=== PATIENT | female | born 1950 | race Hispanic/Latino ===

== ENCOUNTER 2018-05-13 16:42 | Emergency (ER) | payer MEDICARE, SELFPAY ==
[2018-05-13 17:25] LABS: #Basophils 0.1 thou/uL (0.0-0.2); #Eosinphils 0.1 thou/uL (0.0-0.7); #Lymphocytes 1.9 thou/uL (1.20-3.40); #Monocytes 0.5 thou/uL (0.11-0.59); #Neutrophils 4.5 thou/uL (1.40-6.50); %Eosinophils 2.1 % (0.0-10.0); %Lymphocytes 26.9 % (21.0-51.0); %Monocytes 6.8 % (0.0-10.0); %Neutrophils 63.2 % (42.0-75.0); Mean Corpuscular HGB CONC 35.5 g/dL (32.0-36.0); Mean Corpuscular Hemoglobin 33.3 pg (27.0-31.0); Mean Corpuscular Volume 93.8 fL (78.0-98.0); Platelet Count 344 thou/uL (130-400); RBC Distribution Width 13.1 % (11.5-14.5); Red Blood Cell (RBC) Count 3.91 mill/uL (4.20-5.40); White Blood Cell (WBC) Count 7.2 thou/uL (4.8-10.8)
[2018-05-13 17:41] LABS: BHCG - Serum POSITIVE (NEGATIVE); Pregs Control Background? CLEAR/WHITE (CLR/WHITE); Pregs Control Bar Appear? YES (CONTROL BAR)
[2018-05-13 17:49] LABS: ALT (SGPT) 63 U/L (8-55); AST (SGOT) 75 U/L (5-34); Acetaminophen Less than 6.0 mcg/mL (10.0-30.0); Albumin 4.3 g/dL (3.4-4.8); Alcohol 47 mg/dL (Less than 10); Alkaline Phosphatase 103 U/L (40-150); Anion Gap 18 mmol/L (10-20); BUN (Urea Nitrogen) 6 mg/dL (9.8-20.1); Bilirubin, Total 0.3 mg/dL (0.2-1.2); Calc. Creatinine Clearance 0 mL/min (70-130); Calcium 9.7 mg/dL (7.8-10.44); Carbon Dioxide 20 mmol/L (23-31); Chloride 98 mmol/L (98-107); Estimated GFR-MDRD 68; Globulin 2.9 g/dL (2.4-3.5); Glucose 95 mg/dL (80-115); Potassium 3.9 mmol/L (3.5-5.1); Protein, Total 7.2 g/dL (6.0-8.3); Salicylate Less than 8.0 mg/dL (15.0-30.0); Sodium 132 mmol/L (136-145)
[2018-05-13 18:22] LABS: Bilirubin Negative (Negative); Blood, Urine Trace (Negative); Clarity TURBID (Clear); Glucose, Urine (Dipstick) Negative (Negative); Leukocyte Large (Negative); Nitrite Positive (Negative); Protein, Urine (Dipstick) 100 mg/dL (Neg-Trace); Specific Gravity, Urine 1.019 (1.002-1.036); Urobilinogen 0.2 mg/dL (0.2-1.0)
[2018-05-13 18:23] LABS: Amphetamine Not Detected (NotDetected); Barbiturates Screen Not Detected (NotDetected); Benzodiazepine Screen Not Detected (NotDetected); Cocaine Metabolite Screen Not Detected (NotDetected); Medtox Control Line Valid? VALID (VALID); Medtox Reader # READER 4; Methadone Not Detected (NotDetected); Methamphetamine Not Detected (NotDetected); Opiate Screen Not Detected (NotDetected); Oxycodone Screen Not Detected (NotDetected); Phencyclidine (PCP) Not Detected (NotDetected); THC/Cannabinoid Screen Detected (NotDetected); Tricyclic Screen Not Detected (NotDetected)
[2018-05-13 18:24] LABS: Bacteria/HPF 2+ HPF (None Seen); Hyaline Casts/LPF 4-6 HYALINE CAST LPF (0-3 Hyaline); Pathc Cast-AUWi Flag 1.74 (0-2.49); Yeast-AUWi Flag 23.1 (0-25.0)
[2018-05-13] MEDS ORDERED: Nitroglycerin 0.4mg/Hour PATCH ONE (19:41)
[2018-05-13] MEDS ORDERED: Acetaminophen 500 MG TAB ONE (19:51)
[2018-05-14] MEDS ORDERED: cloNIDine 0.1 MG TAB ONE (04:42)
[2018-05-14] MEDS ORDERED: Acetaminophen 500 MG TAB ONE (04:42)
== END 2018-05-14 04:59 ==
LOC: ERS 16:42
DX: R45.851 Suicidal ideations (principal); I25.10 Atherosclerotic heart disease of native coronary artery without angina pectoris; I10 Essential (primary) hypertension; Z86.73 Personal history of transient ischemic attack (TIA), and cerebral infarction without residual deficits; J44.9 Chronic obstructive pulmonary disease, unspecified; F32.9 Major depressive disorder, single episode, unspecified; F17.210 Nicotine dependence, cigarettes, uncomplicated
CPT/HCPCS: 36415; 80053; 80306; 80307; 81003; 81015; 84443; 84702; 84703; 85025; 87077; 87086; 87186; 93005; 94640; 94760; J7620

== ENCOUNTER 2019-09-10 02:30 | Inpatient (IN) | payer MEDICARE, OTHER ==
[2019-09-10] MEDS ORDERED: Nitroglycerin 0.4 MG TAB 1 EACH ONE ×2 (03:02→08:43)
[2019-09-10] MEDS ORDERED: Morphine 4 MG/ML VIAL ONE (03:07)
[2019-09-10] MEDS ORDERED: Ondansetron PF 4 MG/2 ML Vial ONE (03:07)
[2019-09-10 03:08] LABS: #Basophils 0.1 thou/uL (0.0-0.2); #Eosinphils 0.3 thou/uL (0.0-0.7); #Lymphocytes 2.5 thou/uL (1.20-3.40); #Monocytes 0.8 thou/uL (0.11-0.59); #Neutrophils 4.3 thou/uL (1.40-6.50); %Basophils 1.3 % (0.0-1.0); %Eosinophils 3.7 % (0.0-10.0); %Lymphocytes 31.5 % (21.0-51.0); %Monocytes 10.4 % (0.0-10.0); %Neutrophils 53.2 % (42.0-75.0); Hemoglobin 9.8 g/dL (12.0-16.0); Mean Corpuscular HGB CONC 33.3 g/dL (32.0-36.0); Mean Corpuscular Hemoglobin 31.4 pg (27.0-31.0); Mean Corpuscular Volume 94.1 fL (78.0-98.0); Mean Platelet Volume 7.6 fL (7.4-10.4); Platelet Count 370 thou/uL (130-400); RBC Distribution Width 13.3 % (11.5-14.5); Red Blood Cell (RBC) Count 3.12 mill/uL (4.20-5.40)
[2019-09-10] MEDS ORDERED: Metoclopramide 10 MG/10 ML UDCUP ONE (03:14)
[2019-09-10] MEDS ORDERED: Metoprolol Tartrate 5 MG/5 ML VIAL ONE (03:14)
[2019-09-10 03:37] LABS: CRP (Inflammatory) 1.19 mg/dL (= or < 0.5); Magnesium 1.8 mg/dL (1.6-2.6)
[2019-09-10 03:41] LABS: ALT (SGPT) 11 U/L (8-55); AST (SGOT) 13 U/L (5-34); Albumin 3.9 g/dL (3.4-4.8); Alkaline Phosphatase 62 U/L (40-110); Anion Gap 15 mmol/L (10-20); BUN (Urea Nitrogen) 12 mg/dL (9.8-20.1); Bilirubin, Total 0.4 mg/dL (0.2-1.2); Calc. Creatinine Clearance 0 mL/min (70-130); Carbon Dioxide 22 mmol/L (23-31); Chloride 108 mmol/L (98-107); Estimated GFR-MDRD 50; Globulin 2.5 g/dL (2.4-3.5); Glucose 84 mg/dL (80-115); Protein, Total 6.4 g/dL (6.0-8.3); Sodium 141 mmol/L (136-145)
[2019-09-10] MEDS: Sodium Chloride 0.9% 1,000 ML IV SCH ×2 (04:15→15:27)
[2019-09-10] MEDS ORDERED: Acetaminophen 325 MG TAB PO PRN (05:27)
[2019-09-10 06:42] LABS: Troponin I 0.029 ng/mL (< 0.028)
--- NOTE | 2019-09-10 07:47 | HP ---
CHIEF COMPLAINT: Chest pain. HISTORY OF PRESENT ILLNESS: This is a 69-year-old female with past medical history of stroke with residual left-sided neurological deficits, coronary artery disease with recent PCI on 08/31/2019 at outside hospital, compliant on dual antiplatelet therapy with aspirin and Plavix and CAD premedications, hypertension, remote nicotine dependence, who is a prisoner and was brought into [facility] ER for a 2-day history of crescendo anginal complaints that worsened overnight, described as midsternal chest tightness and pressure-like sensation with radiation into the left shoulder, arm, back and neck associated in the absence of nausea, vomiting, diaphoresis, or dyspnea, out of 10 in severity and for any further evaluation. En route to the ER, the patient was administered aspirin, multiple sublingual nitroglycerin tablets and nitroglycerin ointment was applied. Serial EKGs revealed deep T-wave inversions in the precordial leads and inferior leads, and comparison with prior 12-lead EKGs from recent hospitalization at outside facility. No obvious changes were evident. Vital signs were unremarkable. Initial troponin I was negative x1. BNP was 637 and CRP was 1.19. The patient was advised against anticoagulation by on-call milieu therapist and recommended ongoing evaluation. She has been started on normal saline at 100 mL/h and admitted for further inpatient evaluation. At bedside, the patient is accompanied by ocean lifeguard specialist. She offers no other acute complaints. She rates her current pain rated out of 10 in severity. She maintains medication compliance. She notes symptoms recurred several days ago and felt similar to her initial presentation at outside hospital facility. She felt that her symptoms last nigh were more intense than her initial complaints. She denies any illicit drug use. PAST MEDICAL HISTORY: Coronary artery disease with recent stenting on August 31, 2019; stroke with residual neurological deficits; and hypertension. PAST SURGICAL HISTORY: Coronary artery stenting on 08/31/2019. SOCIAL HISTORY: The patient is currently imprisoned. She admits to prior tobacco use, none currently. She denies any illicit drug use. She denies any history of HIV or hepatitis. ALLERGIES: NONE DOCUMENTED. REVIEW OF SYSTEMS: Pertinent positives as per HPI. Remainder of review of systems negative. HOME MEDICATIONS: Reviewed as per admission medication reconciliation. FAMILY HISTORY: The patient's father from [place] in his early 50s. PHYSICAL EXAMINATION: VITAL SIGNS: T-max afebrile; pulse 70s to 80s, sinus rhythm; blood pressure 130s to 140s over 70s to 80s; oxygen saturation 95% to 96%; respirations 14, unlabored. GENERAL: APPEARANCE: This is an elderly female, who is awake, alert, oriented, not in any obvious distress, but who intermittently clenches her chest secondary to what she reports as spasms. HEENT: Normocephalic, atraumatic. No facial asymmetry. Pupils are equally round. Extraocular muscles intact. The patient is edentulous. NECK: Supple. CARDIOVASCULAR SYSTEM: S1 and S2. Regular rate and rhythm. No harsh murmurs. No reproducible anterior chest wall tenderness to palpation. LUNGS: Bilateral equal air entry. Clear to auscultation. Symmetrical chest expansion. No wheezing or rales. ABDOMEN: Soft, nontender, and nondistended. EXTREMITIES: No appreciable lower extremity edema. There is no tenderness to palpation in the right groin. No cyanosis or deformities noted. SKIN: Warm to touch without rash or pallor or abrasion. LABORATORY VALUES: Sodium 141, potassium 4, chloride 108, bicarb 22, glucose 84, BUN and creatinine of 12/1.08, and GFR 50. LFTs unremarkable. Troponin I negative x1. BNP 637.6. CRP 1.19. WBC 8, H and H of 9.8/29.3, and platelets 370. IMAGING DATA: One-view chest x-ray on 09/10/2019, official results pending. Serial 12-lead EKGs done on 09/10/2019, reviewed, reveals normal sinus rhythm, deep T-wave inversions in the precordial leads and noted in the inferior leads. When compared to prior EKG from late August 2019, appears to be unchanged. ASSESSMENT: 1. Unstable angina. The patient will be admitted as inpatient status and placed on telemetry monitoring. Cardiology advises against anticoagulation. She has a known history of coronary artery disease with recent similar complaints requiring percutaneous coronary intervention x1 to unknown vessel and has been compliant with dual antiplatelet therapy, statin, beta-ronald, ARB since that time. We will continue serial cardiac biomarkers and monitor for hemodynamic stability. The patient received aspirin, nitroglycerin tablets, nitro paste, and morphine by EMS and in ER. We will continue all home CAD premedications at this time. 2. Coronary artery disease with recent stenting x1 on 08/31/2019 at outside hospital. We will ask nursing staff to request cardiac catheterization report from outside facility. Continue CAD premedications at this time. 3. History of stroke with residual neurological deficits. 4. History of prior nicotine dependence. The patient maintained on nicotine cessation at this time. 5. Deep venous thrombosis prophylaxis: SCDs. Hold anticoagulation at this time until cardiac catheterization by sap treasury consultant. 6. Disposition: Admitted as inpatient status to [facility] and placed on site monitor. Job ID: [id number]
[2019-09-10] MEDS: Nitroglycerin 0.4 MG TAB 1 EACH SL PRN ×3 (08:44→08:55)
[2019-09-10] MEDS ORDERED: Aspirin Chewable 81 MG TAB ONE (08:46)
--- NOTE | 2019-09-10 08:56 | RAD ---
CHEST 1 VIEW: HISTORY: Chest pain. COMPARISON: Radiograph 10/08/2011. FINDINGS: Dorsal column stimulator is present with leads projecting near the superior end plate of T8. Suggestion of a calcified granuloma over the right lung base. No confluent airspace consolidation. Heart size is upper limits of normal. Coronary stent projects over the left heart. IMPRESSION: No acute intrathoracic abnormality. POS: CET
[2019-09-10] MEDS ORDERED: Clopidogrel Bisulfate 75 MG TAB PO SCH (09:00)
[2019-09-10] MEDS ORDERED: Aspirin Chewable 81 MG TAB PO SCH (09:00)
[2019-09-10] MEDS ORDERED: Morphine 2 MG/ML SYRINGE ONE (09:11)
[2019-09-10] MEDS ORDERED: Morphine 2 MG/ML SYRINGE SLOW IVP PRN (09:18)
[2019-09-10 09:57] LABS: Troponin I 0.038 ng/mL (< 0.028)
--- NOTE | 2019-09-10 12:25 | CON ---
DATE OF CONSULTATION: HISTORY OF PRESENT ILLNESS: I am seeing the patient in the emergency room, 69-year-old female, who recently I believe on end august, underwent angioplasty and stent placement to the left anterior descending artery by Dr. Duenas at [facility] [place], [place]. She was implanted with a 2.75 x 28 mm I believe drug coated stent, which was dilated up to 3.0 mm according to the IVUS report. In the cath report, there was no residual stenosis noted. Apparently, she has chronic pain. She has a spine stimulator and/or a pain stimulator. She presented to the emergency room here stating that she had pain starting since Saturday of this week. She presents here. EKG does show diffuse T-wave inversions in the inferior lateral leads, which was also present on the August 31. The EKG is unchanged. There is no ST-segment elevations noted. She has had a previous CVA in the past, but this could be something neurologic or due to her pain stimulator, uncertain of the EKG changes; however, these EKG changes were present on the August 31 and the EKG that we are now evaluating and seeing does not appear to be changed than from what was already present. When I evaluated the patient, she complains of pain all over. When I touch her chest, she has a reproducible pain, which is easily reproducible and I can hardly examine the patient due to her pain, but does not appear to be cardiac in nature. Her cardiac enzymes are negative thus far for myocardial infarction. I believe she has already had two or three sets of enzymes performed and there is no indication that she is suffering a myocardial infarction. We will continue to follow her and can trend another set of enzymes and if they remains stable, then she will need some type of pain control. PAST MEDICAL HISTORY: Significant for coronary artery disease, angioplasty, stent placement, and hypertension. She has had CVAs in the past. She has chronic pain syndrome. She has a nerve stimulator implanted. She has COPD and history of asthma. She has had a hysterectomy. She has had back surgery. Psychiatric history includes depression. She drinks alcohol. Occasionally uses marijuana and tobacco, she smokes about a pack a day. Apparently, she has stopped since she is now incarcerated since about a week or so ago, apparently has family interactions or altercations and she was placed in [facility]. CURRENT MEDICATIONS: Her medications in the emergency room she was given; 1. Lopressor. 2. Zofran. 3. Morphine. 4. Nitroglycerin. 5. Also IV normal saline. For her medications prior to admission, please refer to the notes already dictated in the nurse records. She was taking I believe aspirin as well as Plavix. 1. Plavix 75 mg a day. 2. Metoprolol 25 mg once a day. 3. Atorvastatin 40 mg a day. 4. Gabapentin 300 mg t.i.d. 5. Losartan 100 mg a day. 6. Aspirin 81 mg a day. SOCIAL HISTORY: She lives at home until she was incarcerated. PHYSICAL EXAMINATION: GENERAL: Reveals a well-developed, well-nourished, somewhat irritable female. VITAL SIGNS: Blood pressure is at this time 141/85, heart rate is anywhere between 60s to 70s and shows a sinus rhythm, and O2 saturations 97% to 100%. HEENT: Reveals the head to be normocephalic and atraumatic. Carotid pulses are present. There are no bruits. CHEST: Actually clear to auscultation without any rales, rhonchi, or wheezing. CARDIOVASCULAR: Reveals a regular rate and rhythm. I did not hear any gross murmurs. ABDOMEN: Shows obesity with positive bowel sounds. No organomegaly or masses are noted. Femoral pulses are present. EXTREMITIES: Show no clubbing or cyanosis. There is no edema. Pedal pulses are difficult to palpate. NEUROLOGIC: She appears to be fully intact. Please note on the examination doing with palpation, she complains of pain in her lower extremities or feet in her legs. She also complains of increased chest pain, just with mild palpation, which she describes as being the pain that she is describing, but unfortunately, she describes this pain as being the same kind of pain that she had previously when she had her stent placed, it is unclear as to whether or not her pain actually was due to coronary artery disease, inadvertently found doing a cardiac catheterization or whether or not this actually is her ongoing pain. LABORATORY DATA: For her other laboratory data, please refer to the notes already dictated. Her sodium is 141, potassium is 4.0, and creatinine is 0.08. GFR was 50. Troponin I still remains negative. Her BNP was 637. WBC was 8, hemoglobin was 9.8, and platelet count was 370,000. IMPRESSION AND PLAN: 1. Chronic diffuse chest pain. I believe her chest pain at this time is musculoskeletal pain. Does not appear to be cardiac in nature. Her EKG is unchanged. Enzymes are negative for the degree of pain that she is having, newer suspect ST-segment elevation and not deep T-wave inversions, which are noted throughout the EKG and are unchanged since 08/31/2019. We will continue to monitor her, but she should be evaluated for her pain control. Should she develop ST-segment changes or enzymes increased, I will be more than happy to evaluate the patient. 2. Chronic pain syndrome. She has a pain doctor and this should be evaluated by the Primary Service or by her pain doctors. 3. Hypertension, this is under good control at this time. I will be more than happy to evaluate the patient if she has any changes, but at this time, she appears to be stable from a cardiac standpoint. Job ID: [id number] MTDD
[2019-09-10 14:38] VITALS: BMI 26.9
[2019-09-10] MEDS ORDERED: predniSONE 20 MG TAB PO SCH (16:00)
[2019-09-11] MEDS ORDERED: Metoprolol Tartrate 25 MG TAB PO SCH ×2 (09:00)
[2019-09-11] MEDS ORDERED: Losartan 25 MG TAB PO SCH (09:00)
[2019-09-11] MEDS ORDERED: Clopidogrel Bisulfate 75 MG TAB PO SCH (09:00)
[2019-09-11] MEDS ORDERED: Aspirin 81 mg Enteric Coated Tablet PO SCH (09:00)
[2019-09-11] MEDS ORDERED: Gabapentin 300 MG CAP PO SCH ×2 (09:45→15:00)
--- NOTE | 2019-09-11 10:59 | PDOC.CPN ---
- Subjective Date: 09/11/19 Time: 11:26 Interval history: The pt seen and examined. No overnight events. No cardiac complaints. - Objective Allergies/Adverse Reactions: Allergies Allergy/AdvReac Type Severity Reaction Status Date / Time No Known Drug Allergies Allergy Verified 09/11/19 07:15 Visit Medications: Current Medications Acetaminophen (Tylenol) 650 mg PO Q4H PRN PRN Reason: Headache/Fever/Mild Pain (1-3) Aspirin (Ecotrin) 81 mg PO DAILY [facility] Last Admin: 09/11/19 09:34 Dose: 81 mg Atorvastatin Calcium (Lipitor) 40 mg PO HS [facility] Clopidogrel Bisulfate (Plavix) 75 mg PO DAILY [facility] Last Admin: 09/11/19 09:34 Dose: 75 mg Gabapentin (Neurontin) 300 mg PO TID [facility] Gabapentin (Neurontin) 300 mg PO NOW [facility] Stop: 09/11/19 12:00 Last Admin: 09/11/19 09:40 Dose: 300 mg Losartan Potassium (Cozaar) 100 mg PO DAILY [facility] Last Admin: 09/11/19 09:34 Dose: 100 mg Metoprolol Tartrate (Lopressor) 25 mg PO BID [facility] Last Admin: 09/11/19 09:35 Dose: 25 mg Nitroglycerin (Nitrostat) 0.4 mg SL Q5MIN PRN PRN Reason: Chest Pain Last Admin: 09/10/19 08:55 Dose: 0.4 mg Vital Signs & Weight: Vital Signs Temp Pulse Resp BP Pulse Ox 09/11/19 08:00 98.2 F 88 16 189/89 H 98 09/11/19 03:27 97.8 F 76 14 123/66 97 09/10/19 23:15 161/66 H Weight 142 lb 9 oz - Physical Exam General: alert & oriented x3 HEENT: mucus membranes moist Neck: supple neck Cardiac: regular rate and rhythm, S1/S2 Lungs: clear to auscultation Extremities: no edema - Labs Result Diagrams: 09/10/19 02:58 09/10/19 02:58 Troponin/CKMB Troponin I 0.038 ng/mL (< 0.028) H 09/10/19 09:13 - Telemetry Sinus rhythms and dysrhythmias: sinus rhythm - Assessment/Plan Assessment/Plan: 1. CP - asymptomatic this AM; checking trop this AM; 2. CAD with s/p SHERMAN in LAD on 08/31/2019 at [facility] - on Metoprolol, Losartan, ASA , and Plavix 3. HTN - All her home med was resumed this AM 4. COPD/asthma - stable with RA 5. hx of CVAs 6. chronic pain syndrome with nerve stimulator implanted 7. ETOH and tobacco abuse - tobacco and ETOH cessation recommended MAR reviewed * If her next trop today is stable, the pt can be d/lorne from Cardiac standpoint pt. seen and eval. by me.I agree with the A/P by the ORACLE ENGINEER. CIE's negative. Still some c/o of chest pain. sharp, worse with movement or deep breath. This does not seem cardiac. RRR,chest clear. okay to d/c from a cardiac standpoint. F/U with [facility] cardiology. I will sign off. shanti
[2019-09-11 12:25] LABS: Troponin I 0.027 ng/mL (< 0.028)
[2019-09-11 15:39] VITALS: BP 152/73; TEMP 98
[2019-09-11] MEDS ORDERED: Atorvastatin Calcium 40 MG TAB PO SCH (21:00)
--- NOTE | 2019-09-12 01:58 | DIS ---
DATE OF ADMISSION: 09/10/2019 DATE OF DISCHARGE: 09/11/2019 FINAL DIAGNOSES AT THE TIME OF DISCHARGE: 1. Chest pain, acute coronary syndrome was ruled out. 2. Coronary artery disease, status post SHERMAN in LAD on 08/31/2019 at [facility]. 3. Hypertension. 4. Chronic obstructive pulmonary disease/asthma. 5. History of CVAs. 6. Chronic pain syndrome with nerve stimulator implanted. 7. EtOH and tobacco abuse. DENTAL MECHANIC: Dr. Edmonds, Cardiology Service. HOSPITAL COURSE: The patient was a 69-year-old female with past medical history of stroke with residual neurological deficits, coronary artery disease with recent PCI on 08/31/[address] [facility], who complained of chest pain. She presented to see [facility] ER for a 2-day history of crescendo anginal complaints that worsened overnight, described as midsternal chest tightness and pressure-like sensation with radiation into the left shoulder, arm, back, and neck, which was associated with absence of nausea, vomiting, diaphoresis, or dyspnea. The pain was treated with aspirin en route to the ER and multiple sublingual nitroglycerin tablets and nitroglycerin ointment. Serial EKGs revealed deep T-wave inversions in the precordial leads and inferior leads in comparison with prior 12-lead EKG from recent hospitalization at outside facility. Vital signs were unremarkable. Initial troponin I was negative x1. BNP was 637 and CRP was 1.19. Apparently, the patient was advised against anticoagulation by on-call bottom steep tender and recommended ongoing evaluation. She was started on normal saline 100 mL/hour and admitted for further inpatient evaluation. At the time of ER evaluation, her electrolytes were within normal limits. Creatinine was 1.08. CRP was 1.19. White count of 8, hemoglobin of 9.8, hematocrit 29.3, platelet count 370. Chest x-ray was done and it showed no acute intracranial abnormality. Electrocardiogram showed normal sinus rhythm with deep T-wave inversions in the precordial leads noted in the inferior leads, but when compared to prior EKG from late August 2019, appeared to be unchanged. The patient got admitted to telemetry floor. She was seen by Dr. Edmonds for Cardiology evaluation, who recommended further observation in the cardiac unit, but she felt that this was more musculoskeletal pain than cardiac in nature. The EKG changes were not new. She had additional three sets of troponins done, which came back in the indeterminate level and the very last one came back in normal range. The patient was observed overnight. Her echocardiogram was performed, which showed LVEF estimated at 50% to 55% with normal right ventricular size and function, mild tricuspid regurgitation, [id number] mitral regurgitation, and trivial aortic regurgitation. The patient was treated with 40 mg of prednisone since it was felt that this was more musculoskeletal discomfort of her chest wall than anything else. She is doing well today. Blood pressure is 136/70, pulse is 78, temperature is 97.3, respirations 18, O2 saturation is 98% on room air. She is seen and examined before she is discharged back to retirement. She is going to stay on heart healthy diet. ACTIVITIES: As tolerated. FOLLOWUP: She is going to follow up with her primary physician in a week. MEDICATIONS AT THE TIME OF DISCHARGE: 1. Metoprolol tartrate 25 mg twice a day. 2. Cozaar 100 mg once a day. 3. Gabapentin 300 mg 3 times a day. 4. Clopidogrel 75 mg once a day. 5. Atorvastatin 40 mg at bedtime. 6. Aspirin 81 mg once a day. 7. Tylenol p.r.n. as needed. Job ID: [id number]
== END 2019-09-11 16:45 | DRG 313 ==
LOC: ERS 02:30 → ERHOLD 04:10 → 2NO 14:24
PROVIDERS: ADMIT Hospitalist; ATTEND Hospitalist
DX: R07.89 Other chest pain (principal); I25.110 Atherosclerotic heart disease of native coronary artery with unstable angina pectoris; Z95.5 Presence of coronary angioplasty implant and graft; I10 Essential (primary) hypertension; J44.9 Chronic obstructive pulmonary disease, unspecified; Z86.73 Personal history of transient ischemic attack (TIA), and cerebral infarction without residual deficits; G89.4 Chronic pain syndrome; F17.200 Nicotine dependence, unspecified, uncomplicated; F10.10 Alcohol abuse, uncomplicated; I08.1 Rheumatic disorders of both mitral and tricuspid valves; F32.9 Major depressive disorder, single episode, unspecified
CPT/HCPCS: 36415; 71045; 80053; 82550; 83735; 83880; 84484; 85025; 85652; 86140; 93005; 93306; 96361; 96374; 96375; J2270; J2405; J7512

== ENCOUNTER 2021-08-20 17:40 | Inpatient (IN) | payer OTHER, MEDICAID ==
[2021-08-20 18:55] LABS: Bilirubin Negative (Negative); Blood, Urine Trace (Negative); Clarity Turbid (Clear); Glucose, Urine (Dipstick) Normal (Negative); Ketone, Urine 20 mg/dL (Negative); Leukocyte 250 Leu/uL (Negative); Nitrite Negative (Negative); Protein, Urine (Dipstick) 100 mg/dL (Neg-Trace); RBC/HPF 0-3 HPF (0-3); Specific Gravity, Urine 1.014 (1.002-1.036); Urobilinogen Normal mg/dL (Less than 2); pH, Urine 5.5 (5.0-9.0)
[2021-08-20 18:56] LABS: ALT (SGPT) 20 U/L (8-55); AST (SGOT) 25 U/L (5-34); Albumin 4.4 g/dL (3.4-4.8); Alkaline Phosphatase 71 U/L (40-110); Anion Gap 25 mmol/L (10-20); BUN (Urea Nitrogen) 62 mg/dL (9.8-20.1); CK (CPK) 905 U/L (29-168); Calc. Creatinine Clearance 0 mL/min (70-130); Calcium 10.4 mg/dL (7.8-10.44); Carbon Dioxide 14 mmol/L (23-31); Chloride 109 mmol/L (98-107); Globulin 3.7 g/dL (2.4-3.5); Glucose 141 mg/dL (80-115); Potassium 4.6 mmol/L (3.5-5.1); Protein, Total 8.1 g/dL (5.8-8.1); Sodium 143 mmol/L (136-145)
[2021-08-20 18:58] LABS: Bacteria/HPF 3+ HPF (None Seen); Yeast-Budding None Seen HPF (None Seen)
[2021-08-20] MEDS ORDERED: cefTRIAXone\\ROCEPHIN 1 GM VIAL ONE (19:08)
[2021-08-20 19:29] LABS: #Eosinphils 0.1 thou/uL (0.0-0.7); #Lymphocytes 1.6 thou/uL (1.20-3.40); #Monocytes 1.6 thou/uL (0.11-0.59); #Neutrophils 11.7 thou/uL (1.40-6.50); %Basophils 0.1 % (0.0-1.0); %Eosinophils 0.6 % (0.0-10.0); %Lymphocytes 10.5 % (21.0-51.0); %Monocytes 10.5 % (0.0-10.0); %Neutrophils 78.3 % (42.0-75.0); Mean Corpuscular HGB CONC 32.1 g/dL (32.0-36.0); Mean Corpuscular Hemoglobin 29.5 pg (27.0-31.0); Mean Corpuscular Volume 91.9 fL (78.0-98.0); Mean Platelet Volume 8.8 fL (7.4-10.4); Platelet Count 269 thou/uL (130-400); RBC Distribution Width 13.1 % (11.5-14.5); Red Blood Cell (RBC) Count 4.41 mill/uL (4.20-5.40)
[2021-08-20] MEDS ORDERED: Ondansetron PF 4 MG/2 ML Vial IVP PRN (20:42)
[2021-08-20] MEDS ORDERED: hydrALAZINE 20 MG/ML VIAL SLOW IVP PRN (20:42)
[2021-08-20] MEDS ORDERED: Dextrose 5% in Water 1,000 ML IV PRN (20:42)
[2021-08-20] MEDS ORDERED: Dextrose 50% Abboject 50 ML SYRINGE SLOW IVP PRN (20:42)
[2021-08-20] MEDS ORDERED: Morphine 4 MG/ML VIAL SLOW IVP PRN ×2 (20:42→21:08)
[2021-08-20] MEDS ORDERED: Cyclobenzaprine 10 MG TAB PO PRN (20:58)
[2021-08-20] MEDS ORDERED: traMADol HCl 50 MG TAB PO PRN (20:58)
[2021-08-20] MEDS ORDERED: Morphine 4 MG/ML VIAL ONE (21:07)
[2021-08-20] MEDS ORDERED: Ondansetron PF 4 MG/2 ML Vial ONE (21:07)
[2021-08-20] MEDS ORDERED: Labetalol HCl 100 MG/20 ML VIAL ONE (21:07)
[2021-08-20] MEDS ORDERED: Metoprolol Tartrate 25 MG TAB PO SCH (21:15)
[2021-08-20 21:29] LABS: Phosphorus 4.3 mg/dL (2.3-4.7)
[2021-08-20 21:32] LABS: Magnesium 2.7 mg/dL (1.6-2.6)
[2021-08-20 22:13] LABS: INR-International Normal Ratio 1.2; PTT 39.5 sec (22.9-36.1); Prothrombin Time 15.4 sec (12.0-14.7)
[2021-08-20 23:01] LABS: SARS-CoV-2 NAA Rapid Test Not Detected (NotDetected)
[2021-08-20 23:02] VITALS: BMI 25.3
[2021-08-20] MEDS: Gabapentin 300 MG CAP PO SCH (23:16)
[2021-08-20] MEDS: Famotidine 20 MG TAB PO SCH (23:18)
[2021-08-20] MEDS: Sodium Chloride 0.9% 1,000 ML IV SCH (23:20)
[2021-08-20] MEDS: Acetaminophen 500 MG TAB PO SCH (23:21)
[2021-08-20] MEDS: traMADol HCl 50 MG TAB PO SCH (23:22)
[2021-08-21] MEDS: Senokot S 8.6-50 MG TAB PO SCH ×4 (00:39→22:06)
[2021-08-21 03:49] LABS: Phosphorus 3.4 mg/dL (2.3-4.7)
[2021-08-21 03:53] LABS: Anion Gap 13 mmol/L (10-20); BUN (Urea Nitrogen) 56 mg/dL (9.8-20.1); Calc. Creatinine Clearance 34 mL/min (70-130); Calcium 7.9 mg/dL (7.8-10.44); Carbon Dioxide 17 mmol/L (23-31); Chloride 116 mmol/L (98-107); Glucose 137 mg/dL (80-115); Potassium 3.7 mmol/L (3.5-5.1); Sodium 142 mmol/L (136-145)
[2021-08-21] MEDS: Acetaminophen 500 MG TAB PO SCH ×4 (05:04→22:06)
[2021-08-21] MEDS: traMADol HCl 50 MG TAB PO SCH ×3 (05:04→22:02)
[2021-08-21 05:24] LABS: Hemoglobin 10.2 g/dL (12.0-16.0); Mean Corpuscular HGB CONC 35.4 g/dL (32.0-36.0); Mean Corpuscular Hemoglobin 32.3 pg (27.0-31.0); Mean Platelet Volume 8.3 fL (7.4-10.4); Platelet Count 244 thou/uL (130-400); Red Blood Cell (RBC) Count 3.15 mill/uL (4.20-5.40); White Blood Cell (WBC) Count 10.6 thou/uL (4.8-10.8)
[2021-08-21 05:53] LABS: Band 9 % (5-11); Lymphocytes 26 % (21-51); MDiff Complete? YES; Monocytes 11 % (0-10); Neutrophil 54 % (42-75)
[2021-08-21] MEDS: Sodium Chloride 0.9% 1,000 ML IV SCH (06:11)
[2021-08-21] MEDS ORDERED: Sodium Chloride 0.9% 1,000 ML IV SCH (07:12)
[2021-08-21] MEDS ORDERED: PHOS-NAK 1 PKT PACK PO SCH (07:30)
[2021-08-21] MEDS: Gabapentin 300 MG CAP PO SCH ×3 (08:19→22:07)
[2021-08-21] MEDS: Polyethylene Glycol 3350 17 GM Packet PO SCH ×2 (08:19→08:23)
[2021-08-21] MEDS: Metoprolol Tartrate 25 MG TAB PO SCH (08:19)
[2021-08-21] MEDS ORDERED: traMADol HCl 50 MG TAB PO PRN (08:30)
[2021-08-21] MEDS ORDERED: Metoprolol Tartrate 25 MG TAB PO SCH (09:00)
[2021-08-21] MEDS: cefTRIAXone\\ROCEPHIN 1 GM in Sodium Chloride 0.9% 100 ML IVPB SCH (22:01)
[2021-08-21] MEDS: Atorvastatin Calcium 40 MG TAB PO SCH (22:07)
[2021-08-21] MEDS: Famotidine 20 MG TAB PO SCH (22:07)
[2021-08-22] MEDS: Acetaminophen 500 MG TAB PO SCH (04:42)
[2021-08-22 05:26] LABS: #Eosinphils 0.2 thou/uL (0.0-0.7); #Lymphocytes 2.2 thou/uL (1.20-3.40); #Monocytes 0.9 thou/uL (0.11-0.59); #Neutrophils 5.7 thou/uL (1.40-6.50); %Basophils 0.4 % (0.0-1.0); %Eosinophils 2.7 % (0.0-10.0); %Monocytes 10.1 % (0.0-10.0); %Neutrophils 62.8 % (42.0-75.0); Hemoglobin 10.8 g/dL (12.0-16.0); Mean Corpuscular HGB CONC 33.7 g/dL (32.0-36.0); Mean Corpuscular Hemoglobin 31.7 pg (27.0-31.0); Mean Platelet Volume 8.7 fL (7.4-10.4); Platelet Count 222 thou/uL (130-400); RBC Distribution Width 13.2 % (11.5-14.5); White Blood Cell (WBC) Count 9.1 thou/uL (4.8-10.8)
[2021-08-22 05:51] LABS: Anion Gap 15 mmol/L (10-20); BUN (Urea Nitrogen) 42 mg/dL (9.8-20.1); Calc. Creatinine Clearance 35 mL/min (70-130); Calcium 7.7 mg/dL (7.8-10.44); Carbon Dioxide 15 mmol/L (23-31); Chloride 108 mmol/L (98-107); Glucose 84 mg/dL (80-115); Magnesium 1.7 mg/dL (1.6-2.6); Phosphorus 2.5 mg/dL (2.3-4.7); Potassium 3.5 mmol/L (3.5-5.1); Sodium 134 mmol/L (136-145)
[2021-08-22] MEDS ORDERED: Acetaminophen 500 MG TAB PO SCH (09:31)
[2021-08-22] MEDS ORDERED: Scopolamine 1.5 mg/72 hour Patch TD SCH (10:00)
[2021-08-22] MEDS: Gabapentin 300 MG CAP PO SCH ×3 (10:05→20:55)
[2021-08-22] MEDS: Metoprolol Tartrate 25 MG TAB PO SCH (10:05)
[2021-08-22] MEDS: Senokot S 8.6-50 MG TAB PO SCH ×2 (10:06→20:55)
[2021-08-22] MEDS: Polyethylene Glycol 3350 17 GM Packet PO SCH (10:08)
[2021-08-22] MEDS: traMADol HCl 50 MG TAB PO SCH (10:09)
[2021-08-22] MEDS: Acetaminophen 325 MG TAB PO SCH ×3 (10:12→20:58)
[2021-08-22] MEDS: Acetaminophen/Codeine 30-300mg Tablet PO SCH ×3 (10:22→20:59)
[2021-08-22] MEDS: cefTRIAXone\\ROCEPHIN 1 GM in Sodium Chloride 0.9% 100 ML IVPB SCH (18:20)
[2021-08-22] MEDS: Atorvastatin Calcium 40 MG TAB PO SCH (20:55)
[2021-08-23] MEDS: Acetaminophen/Codeine 30-300mg Tablet PO SCH ×4 (05:07→21:47)
[2021-08-23] MEDS: Acetaminophen 325 MG TAB PO SCH ×4 (05:07→21:47)
[2021-08-23 05:24] LABS: Anion Gap 10 mmol/L (10-20); BUN (Urea Nitrogen) 31 mg/dL (9.8-20.1); Calc. Creatinine Clearance 46 mL/min (70-130); Carbon Dioxide 21 mmol/L (23-31); Chloride 107 mmol/L (98-107); Potassium 3.2 mmol/L (3.5-5.1); Sodium 135 mmol/L (136-145)
[2021-08-23 05:25] LABS: Calcium 7.6 mg/dL (7.8-10.44); Glucose 89 mg/dL (80-115); Magnesium 1.9 mg/dL (1.6-2.6); Phosphorus 2.4 mg/dL (2.3-4.7)
[2021-08-23] MEDS ORDERED: Potassium Phosphate 30 MMOL in Sodium Chloride 0.9% 250 ML 250 ML IVPB SCH (07:45)
[2021-08-23] MEDS: Senokot S 8.6-50 MG TAB PO SCH ×2 (08:49→20:49)
[2021-08-23] MEDS: Losartan 25 MG TAB PO SCH (08:49)
[2021-08-23] MEDS: Polyethylene Glycol 3350 17 GM Packet PO SCH (08:49)
[2021-08-23] MEDS: Metoprolol Tartrate 25 MG TAB PO SCH (08:50)
[2021-08-23] MEDS: Gabapentin 300 MG CAP PO SCH ×3 (08:50→20:49)
[2021-08-23] MEDS: Clopidogrel Bisulfate 75 MG TAB PO SCH (08:54)
[2021-08-23] MEDS ORDERED: Enoxaparin Sodium 40 MG/0.4 ML SYRINGE SC SCH (09:00)
[2021-08-23] MEDS: cefTRIAXone\\ROCEPHIN 1 GM in Sodium Chloride 0.9% 100 ML IVPB SCH (18:11)
[2021-08-23] MEDS: Atorvastatin Calcium 40 MG TAB PO SCH (20:49)
[2021-08-24] MEDS: Acetaminophen/Codeine 30-300mg Tablet PO SCH ×3 (03:04→15:23)
[2021-08-24] MEDS: Acetaminophen 325 MG TAB PO SCH ×3 (03:05→15:21)
[2021-08-24] MEDS: Clopidogrel Bisulfate 75 MG TAB PO SCH (08:55)
[2021-08-24] MEDS: Losartan 25 MG TAB PO SCH (08:55)
[2021-08-24] MEDS: Senokot S 8.6-50 MG TAB PO SCH (08:56)
[2021-08-24] MEDS: Gabapentin 300 MG CAP PO SCH ×2 (08:56→14:20)
[2021-08-24] MEDS: Polyethylene Glycol 3350 17 GM Packet PO SCH (08:56)
[2021-08-24] MEDS: Metoprolol Tartrate 25 MG TAB PO SCH (08:57)
[2021-08-24] MEDS ORDERED: cefTRIAXone\\ROCEPHIN 1 GM in Sodium Chloride 0.9% 100 ML IVPB SCH (14:15)
[2021-08-24 15:33] VITALS: BP 116/75; TEMP 97.4
== END 2021-08-24 16:40 | DRG 562 ==
LOC: ERS 17:40 → 2NO 20:42 → SURG B 08-23 17:29
PROVIDERS: ADMIT Surgery; ATTEND Surgery
DX: S42.201A Unspecified fracture of upper end of right humerus, initial encounter for closed fracture (principal); Z23 Encounter for immunization; Z20.822 Contact with and (suspected) exposure to COVID-19; A41.9 Sepsis, unspecified organism; S22.42XA Multiple fractures of ribs, left side, initial encounter for closed fracture; N39.0 Urinary tract infection, site not specified; N17.9 Acute kidney failure, unspecified; E86.0 Dehydration; I25.10 Atherosclerotic heart disease of native coronary artery without angina pectoris; J44.9 Chronic obstructive pulmonary disease, unspecified; I10 Essential (primary) hypertension; F17.210 Nicotine dependence, cigarettes, uncomplicated; F12.10 Cannabis abuse, uncomplicated; G62.9 Polyneuropathy, unspecified; I08.1 Rheumatic disorders of both mitral and tricuspid valves; E78.5 Hyperlipidemia, unspecified; E87.6 Hypokalemia; W18.30XA Fall on same level, unspecified, initial encounter; Y92.009 Unspecified place in unspecified non-institutional (private) residence as the place of occurrence of the external cause; Z86.73 Personal history of transient ischemic attack (TIA), and cerebral infarction without residual deficits; Z90.710 Acquired absence of both cervix and uterus; Z95.5 Presence of coronary angioplasty implant and graft; Z79.899 Other long term (current) drug therapy; Z79.84 Long term (current) use of oral hypoglycemic drugs; Z79.02 Long term (current) use of antithrombotics/antiplatelets
CPT/HCPCS: 29105; 36415; 51701; 70450; 71045; 72170; 80048; 80053; 80307; 81003; 81015; 82550; 83605; 83735; 84100; 85025; 85610; 85730; 87040; 87077; 87086; 87186; 90471; 90732; 93005; 93306; 93880; 94640; 96365; 96375; G0009; G0390; J0360; J0696; J2270; J2405; J3490; J7050; J7620; U0002

== ENCOUNTER 2021-08-31 15:10 | Emergency (ER) | payer MEDICARE, OTHER ==
[~2021-08-31 15:10] MED LIST: Iopamidol-370 76% 500 ML 1 ML ONE
[2021-08-31] MEDS ORDERED: Fentanyl 100 MCG/2 ML VIAL ONE ×2 (16:15→17:46)
[2021-08-31 16:37] LABS: #Eosinphils 0.3 thou/uL (0.0-0.7); #Lymphocytes 2.1 thou/uL (1.20-3.40); #Monocytes 0.7 thou/uL (0.11-0.59); %Basophils 0.1 % (0.0-1.0); %Eosinophils 3.1 % (0.0-10.0); %Lymphocytes 22.7 % (21.0-51.0); %Neutrophils 66.1 % (42.0-75.0); Hemoglobin 10.4 g/dL (12.0-16.0); Mean Corpuscular HGB CONC 34.6 g/dL (32.0-36.0); Mean Corpuscular Hemoglobin 31.6 pg (27.0-31.0); Mean Corpuscular Volume 91.5 fL (78.0-98.0); Mean Platelet Volume 6.7 fL (7.4-10.4); Platelet Count 456 thou/uL (130-400); RBC Distribution Width 13.3 % (11.5-14.5); Red Blood Cell (RBC) Count 3.29 mill/uL (4.20-5.40); White Blood Cell (WBC) Count 9.1 thou/uL (4.8-10.8)
[2021-08-31 17:01] LABS: ALT (SGPT) 10 U/L (8-55); AST (SGOT) 12 U/L (5-34); Albumin 3.5 g/dL (3.4-4.8); Alkaline Phosphatase 115 U/L (40-110); Anion Gap 14 mmol/L (10-20); BUN (Urea Nitrogen) 15 mg/dL (9.8-20.1); Bilirubin, Total 0.4 mg/dL (0.2-1.2); Calc. Creatinine Clearance 0 mL/min (70-130); Calcium 9.1 mg/dL (7.8-10.44); Carbon Dioxide 26 mmol/L (23-31); Chloride 100 mmol/L (98-107); Globulin 2.9 g/dL (2.4-3.5); Glucose 116 mg/dL (80-115); Potassium 3.5 mmol/L (3.5-5.1); Protein, Total 6.4 g/dL (5.8-8.1); Sodium 136 mmol/L (136-145)
== END 2021-08-31 19:15 | disposition home or self-care (01) ==
LOC: ERS 15:10
DX: S42.201A Unspecified fracture of upper end of right humerus, initial encounter for closed fracture (principal); J18.1 Lobar pneumonia, unspecified organism; I25.10 Atherosclerotic heart disease of native coronary artery without angina pectoris; I10 Essential (primary) hypertension; J44.9 Chronic obstructive pulmonary disease, unspecified; F17.210 Nicotine dependence, cigarettes, uncomplicated; Z86.73 Personal history of transient ischemic attack (TIA), and cerebral infarction without residual deficits; Z79.82 Long term (current) use of aspirin; Z79.899 Other long term (current) drug therapy; W01.0XXA Fall on same level from slipping, tripping and stumbling without subsequent striking against object, initial encounter
CPT/HCPCS: 36415; 70450; 71260; 72125; 74177; 80053; 85025; 96374; 96376; J3010; Q9967

== ENCOUNTER 2022-03-17 09:46 | Emergency (ER) | payer OTHER, MEDICAID | END 2022-03-17 11:00 | disposition home or self-care (01) | LOC: ERS 09:46 | DX: U07.1 COVID-19 (principal); I25.10 Atherosclerotic heart disease of native coronary artery without angina pectoris; I10 Essential (primary) hypertension; J44.9 Chronic obstructive pulmonary disease, unspecified; Z86.73 Personal history of transient ischemic attack (TIA), and cerebral infarction without residual deficits | CPT/HCPCS: U0003; U0005; 99283 ==

== ENCOUNTER 2022-03-22 11:16 | Emergency (ER) | payer OTHER, MEDICAID ==
[2022-03-22] MEDS ORDERED: Morphine 4 MG/ML VIAL ONE (11:53)
[2022-03-22] MEDS ORDERED: Boostrix 0.5 ML (Tdap) VIAL ONE (11:53)
== END 2022-03-22 14:35 | disposition home or self-care (01) ==
LOC: ERS 11:16
DX: S82.111A Displaced fracture of right tibial spine, initial encounter for closed fracture (principal); M25.561 Pain in right knee; M25.551 Pain in right hip; M25.511 Pain in right shoulder; G89.11 Acute pain due to trauma; I25.10 Atherosclerotic heart disease of native coronary artery without angina pectoris; I10 Essential (primary) hypertension; J44.9 Chronic obstructive pulmonary disease, unspecified; F17.200 Nicotine dependence, unspecified, uncomplicated; W01.0XXA Fall on same level from slipping, tripping and stumbling without subsequent striking against object, initial encounter
CPT/HCPCS: 90471; 90715; 96372; J2270

== ENCOUNTER 2022-09-25 14:34 | Observation (INO) | payer OTHER, MEDICAID ==
[2022-09-25 15:25] LABS: #Lymphocytes 2.8 thou/uL (1.20-3.40); #Monocytes 0.8 thou/uL (0.11-0.59); #Neutrophils 5.9 thou/uL (1.40-6.50); %Eosinophils 0.3 % (0.0-10.0); %Lymphocytes 29.2 % (21.0-51.0); %Monocytes 8.4 % (0.0-10.0); Hemoglobin 10.3 g/dL (12.0-16.0); Mean Corpuscular HGB CONC 34.3 g/dL (32.0-36.0); Mean Corpuscular Hemoglobin 30.2 pg (27.0-31.0); Mean Corpuscular Volume 87.8 fl (78.0-98.0); Mean Platelet Volume 7.7 fL (7.4-10.4); Platelet Count 229 10x3/uL (130-400); RBC Distribution Width 14.6 % (11.5-14.5); Red Blood Cell (RBC) Count 3.41 mill/uL (4.20-5.40); White Blood Cell (WBC) Count 9.6 10x3/uL (4.8-10.8)
[2022-09-25 15:56] LABS: ALT (SGPT) 13 U/L (8-55); AST (SGOT) 11 U/L (5-34); Albumin 4.2 g/dL (3.4-4.8); Alkaline Phosphatase 64 U/L (40-110); Anion Gap 14 mmol/L (10-20); BUN (Urea Nitrogen) 32 mg/dL (9.8-20.1); Bilirubin, Total 0.2 mg/dL (0.2-1.2); Calc. Creatinine Clearance 0 mL/min (70-130); Calcium 8.5 mg/dL (7.8-10.44); Carbon Dioxide 20 mmol/L (23-31); Chloride 109 mmol/L (98-107); Estimated GFR 60; Globulin 2.2 g/dL (2.4-3.5); Glucose 84 mg/dL (83-110); Lipase 16 U/L (8-78); Potassium 3.9 mmol/L (3.5-5.1); Protein, Total 6.4 g/dL (5.8-8.1); Sodium 139 mmol/L (136-145)
[2022-09-25] MEDS ORDERED: hydrALAZINE 20 MG/ML VIAL ONE (17:22)
[2022-09-25 19:39] LABS: Troponin I Less than 0.010 ng/mL (< 0.028)
[2022-09-25] MEDS ORDERED: Albuterol 200 PUFF (6.7GM INHALER) INH PRN (20:22)
[2022-09-25] MEDS ORDERED: Senokot S 8.6-50 MG TAB PO PRN (20:48)
[2022-09-25] MEDS ORDERED: Acetaminophen 325 MG TAB PO PRN (20:48)
[2022-09-25] MEDS ORDERED: Calcium Carbonate 500 MG ChewTAB PO PRN (20:48)
[2022-09-25] MEDS ORDERED: Famotidine 20 MG TAB PO SCH (21:00)
[2022-09-25] MEDS ORDERED: Atorvastatin Calcium 20 MG TAB PO SCH (21:00)
[2022-09-25 22:43] LABS: Troponin I Less than 0.010 ng/mL (< 0.028)
[2022-09-25] MEDS ORDERED: Famotidine 20 MG TAB ONE (23:07)
[2022-09-26] MEDS ORDERED: Dextrose 5%-Lactated Ringers 1,000 ML IV SCH (00:01)
[2022-09-26 02:23] LABS: Cardiac Risk 3.4 (Less than 4.5)
[2022-09-26] MEDS ORDERED: Regadenoson 0.4 MG/5 ML SYRINGE ONE (08:53)
[2022-09-26 09:00] LABS: Magnesium 1.9 mg/dL (1.6-2.6)
[2022-09-26] MEDS ORDERED: Aspirin 81 mg Enteric Coated Tablet PO SCH (09:00)
[2022-09-26] MEDS ORDERED: Metoprolol Tartrate 25 MG TAB PO SCH (09:00)
[2022-09-26] MEDS ORDERED: Clopidogrel Bisulfate 75 MG TAB PO SCH (09:00)
[2022-09-26] MEDS ORDERED: Aspirin Chewable 81 MG TAB PO SCH (09:00)
[2022-09-26 15:09] VITALS: BP 134/78; TEMP 97.9
== END 2022-09-26 14:58 | disposition home or self-care (01) ==
LOC: ERS 14:34 → ERHOLD 20:12
PROVIDERS: ADMIT Student in an Organized Health Care Education/Training Program; ATTEND Nurse Practitioner Family
DX: R07.89 Other chest pain (principal); J45.909 Unspecified asthma, uncomplicated; E78.5 Hyperlipidemia, unspecified; I25.10 Atherosclerotic heart disease of native coronary artery without angina pectoris; I25.2 Old myocardial infarction; G62.9 Polyneuropathy, unspecified; F12.11 Cannabis abuse, in remission; F17.210 Nicotine dependence, cigarettes, uncomplicated; I10 Essential (primary) hypertension; Z86.73 Personal history of transient ischemic attack (TIA), and cerebral infarction without residual deficits; Z79.82 Long term (current) use of aspirin; Z79.899 Other long term (current) drug therapy; Z95.5 Presence of coronary angioplasty implant and graft; Z20.822 Contact with and (suspected) exposure to COVID-19
CPT/HCPCS: 71045; 71275; 78452; 80053; 80061; 83690; 83735; 84443; 84484 ×2; 85025; 85379; 93005; 93017; A9500; U0003; U0005; 36415; 96374; G0378; J0360; J2785; Q9967

== ENCOUNTER 2023-01-11 13:53 | Outpatient (CLI) | payer OTHER, MEDICAID | END 2023-01-11 13:54 | disposition home or self-care (01) | LOC: LABBT 13:53 | PROVIDERS: ATTEND Neurological Surgery | DX: Z01.810 Encounter for preprocedural cardiovascular examination (principal); M48.061 Spinal stenosis, lumbar region without neurogenic claudication; M71.30 Other bursal cyst, unspecified site | CPT/HCPCS: 93005; 93010 ==

== ENCOUNTER 2023-01-16 05:49 | Day surgery (SDC) | payer OTHER, MEDICAID ==
[2023-01-11 14:08] VITALS: BMI 26.0
[2023-01-11 16:06] LABS: Hemoglobin 10.3 g/dL (12.0-15.5); Mean Corpuscular HGB CONC 33.2 g/dL (32.0-36.0); Mean Corpuscular Hemoglobin 28.1 pg (27.0-33.0); Mean Corpuscular Volume 84.5 fl (81.6-98.3); Mean Platelet Volume 10.6 fl (7.4-10.4); Platelet Count 217 10x3/uL (150-450); Red Blood Cell (RBC) Count 3.67 10x6/uL (3.90-5.03); White Blood Cell (WBC) Count 7.2 10x3/uL (3.5-10.5)
[2023-01-11 16:26] LABS: Anion Gap 15 mmol/L (10-20); BUN (Urea Nitrogen) 16 mg/dL (9.8-20.1); Calc. Creatinine Clearance 37 mL/min (70-130); Calcium 8.8 mg/dL (7.8-10.44); Carbon Dioxide 22 mmol/L (23-31); Chloride 103 mmol/L (98-107); Estimated GFR 42; Glucose 90 mg/dL (83-110); Potassium 3.8 mmol/L (3.5-5.1); Sodium 136 mmol/L (136-145)
[2023-01-16] MEDS ORDERED: Thrombin 5000 UNITS/5 ML VIAL ONE (06:11)
[2023-01-16] MEDS ORDERED: Bupivacaine HCl 0.5%/Epinephrine 1:200,000/PF 30 ml Vial ONE (06:11)
[2023-01-16] MEDS ORDERED: CEFAZOLIN 2 GM VIAL ONE ×2 (06:45→11:10)
[2023-01-16] MEDS ORDERED: Sodium Chloride 0.9% 100 ML ONE ×2 (06:45→11:10)
[2023-01-16] MEDS ORDERED: fentaNYL 50 mcg/mL 1 mL Vial ONE (07:06)
[2023-01-16] MEDS ORDERED: Rocuronium Bromide 10 MG/ML (10ML VIAL) ONE (07:09)
[2023-01-16] MEDS ORDERED: Dexamethasone 20 MG/5 ML VIAL ONE (07:09)
[2023-01-16] MEDS ORDERED: Lidocaine 1% PF 5 ML VIAL ONE (07:09)
[2023-01-16] MEDS ORDERED: Ondansetron PF 4 MG/2 ML Vial ONE (07:09)
[2023-01-16] MEDS ORDERED: Labetalol HCl 100 MG/20 ML VIAL ONE (07:09)
[2023-01-16] MEDS ORDERED: PROPOFOL 200 MG/20 ML VIAL ONE (07:09)
[2023-01-16] MEDS ORDERED: SUGAMMADEX SODIUM 200 MG/2 ML VIAL ONE (08:07)
[2023-01-16] MEDS ORDERED: Fentanyl 250 MCG/5 ML VIAL ONE (08:27)
[2023-01-16] MEDS ORDERED: HYDROmorphone 0.5 MG/0.5 ML SYRINGE ONE (08:33)
[2023-01-16] MEDS ORDERED: diphenhydrAMINE 50 MG/ML VIAL ONE (09:20)
[2023-01-16] MEDS ORDERED: hydrOXYzine 25 MG/ML VIAL IM SCH (11:30)
== END 2023-01-16 12:50 ==
LOC: SDC 05:49
PROVIDERS: ATTEND Neurological Surgery
PROC: 01NB0ZZ Release Lumbar Nerve, Open Approach (ICD-10-PCS; principal; 2023-01-16)
DX: M48.062 Spinal stenosis, lumbar region with neurogenic claudication (principal); M71.38 Other bursal cyst, other site; M54.16 Radiculopathy, lumbar region; M25.78 Osteophyte, vertebrae; G89.29 Other chronic pain; M19.90 Unspecified osteoarthritis, unspecified site; I11.9 Hypertensive heart disease without heart failure; Z87.891 Personal history of nicotine dependence; Z79.02 Long term (current) use of antithrombotics/antiplatelets; Z79.82 Long term (current) use of aspirin; Z79.899 Other long term (current) drug therapy; Z95.5 Presence of coronary angioplasty implant and graft
CPT/HCPCS: 63047; 80048; 85027; J3010; J1100; J1170; J1200; J2405; J2704; J3410; J3490

== ENCOUNTER 2025-04-21 20:28 | Emergency (ER) | payer MEDICARE ==
[2025-04-21 21:15] LABS: #Basophils 0.04 10x3/uL (0.0-0.2); #Eosinophils 0.45 10x3/uL (0.0-0.7); #Monocytes 0.43 10x3/uL (0.11-0.59); #Neutrophils 3.16 10x3/uL (1.40-6.50); %Basophils 0.6 % (0.0-1.0); %Eosinophils 7.1 % (0.0-10.0); %Lymphocytes 35.6 % (21.0-51.0); %Monocytes 6.7 % (0.0-10.0); %Neutrophils 49.5 % (42.0-75.0); Hematocrit 29.4 % (36.0-47.0); Hemoglobin 9.4 g/dL (12.0-16.0); Mean Corpuscular Hemoglobin 27.9 pg (27.0-31.0); Mean Corpuscular Volume 87.2 fL (78.0-98.0); Platelet Count 285 10x3/uL (130-400); Red Blood Cell (RBC) Count 3.37 mill/uL (4.20-5.40); White Blood Cell (WBC) Count 6.38 10x3/uL (4.8-10.8)
[2025-04-21] MEDS ORDERED: Ondansetron PF 4 MG/2 ML Vial ONE (21:28)
[2025-04-21 21:29] LABS: ALT (SGPT) 10 U/L (Less than 34); AST (SGOT) 23 U/L (11-34); Albumin 3.6 g/dL (3.1-4.5); Alkaline Phosphatase 76 U/L (40-110); Anion Gap 16 mmol/L (10-20); BUN (Urea Nitrogen) 15 mg/dL (9.8-20.1); Bilirubin, Total 0.1 mg/dL (0.3-1.2); Calc. Creatinine Clearance 0 mL/min (70-130); Calcium 8.5 mg/dL (7.8-10.44); Carbon Dioxide 22 mmol/L (23-31); Chloride 111 mmol/L (98-107); Globulin 3.1 g/dL (2.4-3.5); Glucose 142 mg/dL (83-110); Lipase 19 U/L (8-78); Potassium 3.3 mmol/L (3.5-5.1); Sodium 146 mmol/L (136-145)
[2025-04-21 21:35] LABS: INR-International Normal Ratio 1.1; PTT 35.3 sec (22.9-36.1); Prothrombin Time 13.9 sec (12.0-14.7)
[2025-04-21] MEDS ORDERED: Lidocaine 1% w/Epinephrine 1:100K 20 ML VIAL ONE (22:21)
[2025-04-21] MEDS ORDERED: hydrALAZINE 20 MG/ML VIAL ONE (23:14)
== END 2025-04-22 00:07 | disposition home or self-care (01) ==
LOC: ERS 20:28
DX: S01.81XA Laceration without foreign body of other part of head, initial encounter (principal); E87.6 Hypokalemia; I10 Essential (primary) hypertension; I25.2 Old myocardial infarction; I25.10 Atherosclerotic heart disease of native coronary artery without angina pectoris; F17.210 Nicotine dependence, cigarettes, uncomplicated; W01.0XXA Fall on same level from slipping, tripping and stumbling without subsequent striking against object, initial encounter
CPT/HCPCS: 12013; 70450; 71045; 72125; 72170; 80053; 83605; 83690; 84484; 85025; 85610; 85730; 87040; 93005; 96374; 96375; 99284; J0360; J2270; J2405; 36415

== ENCOUNTER 2025-05-04 13:05 | Emergency (ER) | payer MEDICARE ==
[2025-05-04] MEDS ORDERED: Ketorolac Tromethamine 30 MG (1 mL) VIAL ONE (13:34)
== END 2025-05-04 18:06 | disposition home or self-care (01) ==
LOC: ERS 13:05
DX: S92.352A Displaced fracture of fifth metatarsal bone, left foot, initial encounter for closed fracture (principal); S32.019A Unspecified fracture of first lumbar vertebra, initial encounter for closed fracture; S32.029A Unspecified fracture of second lumbar vertebra, initial encounter for closed fracture; I10 Essential (primary) hypertension; I25.2 Old myocardial infarction; F17.200 Nicotine dependence, unspecified, uncomplicated; W18.30XA Fall on same level, unspecified, initial encounter; Z79.899 Other long term (current) drug therapy
CPT/HCPCS: 72131; 73590; 73610; 73630; J1885; 96372

== ENCOUNTER 2025-07-20 14:18 | Inpatient (IN) | payer MEDICARE ==
[~2025-07-20 14:18] MED LIST changes: +Iopamidol 370 76% 100 ML VIAL ONE; -Iopamidol-370 76% 500 ML 1 ML ONE
[2025-07-20] MEDS ORDERED: Acetaminophen 500 MG TAB ONE (15:10)
[2025-07-20 15:43] LABS: #Basophils Less than 0.03 10x3/uL (0.0-0.2); #Eosinophils 0.30 10x3/uL (0.0-0.7); #Monocytes 0.51 10x3/uL (0.11-0.59); #Neutrophils 3.45 10x3/uL (1.40-6.50); %Basophils 0.3 % (0.0-1.0); %Eosinophils 4.9 % (0.0-10.0); %Lymphocytes 29.3 % (21.0-51.0); %Monocytes 8.4 % (0.0-10.0); %Neutrophils 56.6 % (42.0-75.0); Hematocrit 27.9 % (36.0-47.0); Hemoglobin 8.7 g/dL (12.0-16.0); Mean Corpuscular Hemoglobin 28.0 pg (27.0-31.0); Mean Corpuscular Volume 89.7 fL (78.0-98.0); Platelet Count 278 10x3/uL (130-400); Red Blood Cell (RBC) Count 3.11 mill/uL (4.20-5.40); White Blood Cell (WBC) Count 6.10 10x3/uL (4.8-10.8)
[2025-07-20 15:51] LABS: ALT (SGPT) 21 U/L (Less than 34); AST (SGOT) 26 U/L (11-34); Albumin 3.6 g/dL (3.1-4.5); Alkaline Phosphatase 98 U/L (40-110); Anion Gap 14 mmol/L (10-20); BUN (Urea Nitrogen) 39 mg/dL (9.8-20.1); Bilirubin, Total 0.2 mg/dL (0.3-1.2); CK (CPK) 312 U/L (29-168); Calc. Creatinine Clearance 0 mL/min (70-130); Calcium 8.6 mg/dL (7.8-10.44); Carbon Dioxide 20 mmol/L (23-31); Chloride 109 mmol/L (98-107); Globulin 2.6 g/dL (2.4-3.5); Glucose 115 mg/dL (83-110); Lipase 12 U/L (8-78); Potassium 4.2 mmol/L (3.5-5.1); Sodium 139 mmol/L (136-145)
[2025-07-20 16:11] LABS: INR-International Normal Ratio 0.9; Prothrombin Time 12.5 sec (12.0-14.7)
[2025-07-20 16:12] LABS: PTT 36.0 sec (22.9-36.1)
[2025-07-20 18:38] LABS: CAUTI Indications for Culture Alt mental st,lethar; Glucose, Urine (Dipstick) Normal (Negative); Leukocyte 500 Leu/uL (Negative); Protein, Urine (Dipstick) 100 mg/dL (Neg-Trace); RBC/HPF 0-3 HPF (0-3); Specific Gravity, Urine 1.028 (1.002-1.036); WBC/HPF 21-50 HPF (0-3)
[2025-07-20 18:41] LABS: Bacteria/HPF 1+ HPF (None Seen)
[2025-07-20 18:43] LABS: Urine Culture Reflex Yes Yes
[2025-07-20] MEDS ORDERED: Ondansetron PF 4 MG/2 ML Vial IVP PRN (18:45)
[2025-07-20 18:50] LABS: Cocaine Metabolite Screen Negative (Negative); THC/Cannabinoid Screen Negative (Negative); Tricyclic Screen Negative (Negative)
[2025-07-20] MEDS: Acetaminophen 325 MG TAB PO PRN (19:31)
[2025-07-20] MEDS: Heparin 5,000 UNITS/ML VIAL SC SCH (19:31)
[2025-07-20 20:46] VITALS: BMI 25.9
[2025-07-20] MEDS: Famotidine 20 MG TAB PO SCH (21:31)
[2025-07-21 05:37] LABS: #Basophils Less than 0.03 10x3/uL (0.0-0.2); #Eosinophils 0.30 10x3/uL (0.0-0.7); #Monocytes 0.67 10x3/uL (0.11-0.59); #Neutrophils 4.23 10x3/uL (1.40-6.50); %Basophils 0.3 % (0.0-1.0); %Eosinophils 4.1 % (0.0-10.0); %Lymphocytes 27.5 % (21.0-51.0); %Monocytes 9.3 % (0.0-10.0); %Neutrophils 58.5 % (42.0-75.0); Hematocrit 27.8 % (36.0-47.0); Hemoglobin 8.7 g/dL (12.0-16.0); Mean Corpuscular Hemoglobin 28.4 pg (27.0-31.0); Mean Corpuscular Volume 90.8 fL (78.0-98.0); Platelet Count 266 10x3/uL (130-400); Red Blood Cell (RBC) Count 3.06 mill/uL (4.20-5.40); White Blood Cell (WBC) Count 7.23 10x3/uL (4.8-10.8)
[2025-07-21 05:41] LABS: Anion Gap 12 mmol/L (10-20); BUN (Urea Nitrogen) 33 mg/dL (9.8-20.1); Calc. Creatinine Clearance 33 mL/min (70-130); Calcium 8.4 mg/dL (7.8-10.44); Carbon Dioxide 19 mmol/L (23-31); Chloride 112 mmol/L (98-107); Glucose 79 mg/dL (83-110); Potassium 4.3 mmol/L (3.5-5.1); Sodium 139 mmol/L (136-145)
[2025-07-21] MEDS: Isosorbide Mononitrate 60 MG ER.TAB PO SCH (08:10)
[2025-07-21] MEDS: Aspirin 81 mg Enteric Coated Tablet PO SCH (08:10)
[2025-07-21] MEDS: FLU (Fluad Triv) 25-26 (65UP)PF 45 MCG/0.5 ML Syringe IM ONE (10:14)
[2025-07-21] MEDS: PNEUMOC 20-VAL CONJ-DIP CRM/PF 0.5 ML SYRINGE IM ONE (10:15)
[2025-07-21] MEDS: cefTRIAXone\\ROCEPHIN 1 GM in Sodium Chloride 0.9% 100 ML IVPB SCH (18:40)
[2025-07-22 05:01] LABS: #Basophils Less than 0.03 10x3/uL (0.0-0.2); #Eosinophils 0.30 10x3/uL (0.0-0.7); #Monocytes 0.55 10x3/uL (0.11-0.59); #Neutrophils 4.21 10x3/uL (1.40-6.50); %Basophils 0.3 % (0.0-1.0); %Eosinophils 4.4 % (0.0-10.0); %Lymphocytes 24.3 % (21.0-51.0); %Monocytes 8.1 % (0.0-10.0); %Neutrophils 62.3 % (42.0-75.0); Hematocrit 28.7 % (36.0-47.0); Hemoglobin 9.3 g/dL (12.0-16.0); Mean Corpuscular Hemoglobin 28.7 pg (27.0-31.0); Mean Corpuscular Volume 88.6 fL (78.0-98.0); Platelet Count 290 10x3/uL (130-400); Red Blood Cell (RBC) Count 3.24 mill/uL (4.20-5.40); White Blood Cell (WBC) Count 6.76 10x3/uL (4.8-10.8)
[2025-07-22 05:24] LABS: Anion Gap 12 mmol/L (10-20); BUN (Urea Nitrogen) 27 mg/dL (9.8-20.1); Calc. Creatinine Clearance 33 mL/min (70-130); Calcium 8.5 mg/dL (7.8-10.44); Carbon Dioxide 17 mmol/L (23-31); Chloride 116 mmol/L (98-107); Glucose 85 mg/dL (83-110); Potassium 4.0 mmol/L (3.5-5.1); Sodium 141 mmol/L (136-145)
[2025-07-22] MEDS: Melatonin 3 MG TAB PO PRN (20:59)
[2025-07-23 05:46] LABS: #Basophils Less than 0.03 10x3/uL (0.0-0.2); #Eosinophils 0.24 10x3/uL (0.0-0.7); #Monocytes 0.51 10x3/uL (0.11-0.59); #Neutrophils 3.63 10x3/uL (1.40-6.50); %Basophils 0.2 % (0.0-1.0); %Eosinophils 4.0 % (0.0-10.0); %Lymphocytes 26.1 % (21.0-51.0); %Monocytes 8.5 % (0.0-10.0); %Neutrophils 60.9 % (42.0-75.0); Hematocrit 27.9 % (36.0-47.0); Hemoglobin 9.0 g/dL (12.0-16.0); Mean Corpuscular Hemoglobin 28.6 pg (27.0-31.0); Mean Corpuscular Volume 88.6 fL (78.0-98.0); Platelet Count 308 10x3/uL (130-400); Red Blood Cell (RBC) Count 3.15 mill/uL (4.20-5.40); White Blood Cell (WBC) Count 5.97 10x3/uL (4.8-10.8)
[2025-07-23 06:07] LABS: Anion Gap 13 mmol/L (10-20); BUN (Urea Nitrogen) 16 mg/dL (9.8-20.1); Calc. Creatinine Clearance 45 mL/min (70-130); Calcium 8.8 mg/dL (7.8-10.44); Carbon Dioxide 18 mmol/L (23-31); Chloride 114 mmol/L (98-107); Glucose 86 mg/dL (83-110); Potassium 3.6 mmol/L (3.5-5.1); Sodium 141 mmol/L (136-145)
[2025-07-23 07:57] VITALS: TEMP 98.5
[2025-07-23] MEDS: cloNIDine 0.1 MG TAB PO SCH (17:45)
[2025-07-23 18:26] VITALS: BP 205/97
== END 2025-07-23 18:05 | disposition home or self-care (01) | DRG 563 ==
LOC: ERS 14:18 → T4-A 17:50
PROVIDERS: ADMIT Internal Medicine; ATTEND Internal Medicine
PROC: 3E03329 Introduction of Other Anti-infective into Peripheral Vein, Percutaneous Approach (ICD-10-PCS; principal; 2025-07-21)
PROC: 3E02340 Introduction of Influenza Vaccine into Muscle, Percutaneous Approach (ICD-10-PCS; 2025-07-21)
PROC: 3E0234Z Introduction of Serum, Toxoid and Vaccine into Muscle, Percutaneous Approach (ICD-10-PCS; 2025-07-21)
DX: S42.035A Nondisplaced fracture of lateral end of left clavicle, initial encounter for closed fracture (principal); N17.9 Acute kidney failure, unspecified; N39.0 Urinary tract infection, site not specified; R29.6 Repeated falls; J45.909 Unspecified asthma, uncomplicated; Z86.73 Personal history of transient ischemic attack (TIA), and cerebral infarction without residual deficits; N18.30 Chronic kidney disease, stage 3 unspecified; D63.1 Anemia in chronic kidney disease; I25.10 Atherosclerotic heart disease of native coronary artery without angina pectoris; I12.9 Hypertensive chronic kidney disease with stage 1 through stage 4 chronic kidney disease, or unspecified chronic kidney disease; Z95.5 Presence of coronary angioplasty implant and graft; E78.5 Hyperlipidemia, unspecified; I25.2 Old myocardial infarction; Z90.710 Acquired absence of both cervix and uterus; Z98.890 Other specified postprocedural states; F32.A Depression, unspecified; F17.210 Nicotine dependence, cigarettes, uncomplicated; Z79.82 Long term (current) use of aspirin; Z79.899 Other long term (current) drug therapy; Z23 Encounter for immunization
CPT/HCPCS: 36415; 70450; 71260; 72125; 74177; 80048; 80053; 80306; 80307; 81001; 82550; 83690; 83880; 84484; 85025; 85610; 85730; 87077; 87086; 87186; 90471; 90653; 90677; 93005; 93880; 94640; G0009; J0696; J1644; J7030; J7626; Q9967